=== PATIENT | female | born 1950 | race Caucasian/White ===

== ENCOUNTER 2018-01-07 16:19 | Emergency (ER) | payer MEDICARE ==
[2018-01-07 17:32] LABS: #Basophils 0.1 thou/uL (0.0-0.2); #Eosinphils 0.1 thou/uL (0.0-0.7); #Monocytes 0.9 thou/uL (0.11-0.59); #Neutrophils 11.6 thou/uL (1.40-6.50); %Basophils 0.4 % (0.0-1.0); %Eosinophils 0.9 % (0.0-10.0); %Lymphocytes 13.7 % (21.0-51.0); %Monocytes 5.9 % (0.0-10.0); %Neutrophils 79.1 % (42.0-75.0); Hemoglobin 14.7 g/dL (12.0-16.0); Mean Corpuscular HGB CONC 34.2 g/dL (32.0-36.0); Mean Corpuscular Hemoglobin 31.2 pg (27.0-31.0); Mean Corpuscular Volume 91.1 fL (78.0-98.0); Mean Platelet Volume 7.5 fL (7.4-10.4); Platelet Count 317 thou/uL (130-400); RBC Distribution Width 12.5 % (11.5-14.5); Red Blood Cell (RBC) Count 4.71 mill/uL (4.20-5.40); White Blood Cell (WBC) Count 14.6 thou/uL (4.8-10.8)
[2018-01-07 17:57] LABS: ALT (SGPT) 26 U/L (8-55); AST (SGOT) 22 U/L (5-34); Albumin 4.6 g/dL (3.4-4.8); Alkaline Phosphatase 102 U/L (40-150); Anion Gap 15 mmol/L (10-20); BUN (Urea Nitrogen) 17 mg/dL (9.8-20.1); Bilirubin, Total 0.6 mg/dL (0.2-1.2); Calc. Creatinine Clearance 0 mL/min (70-130); Carbon Dioxide 25 mmol/L (23-31); Chloride 107 mmol/L (98-107); Estimated GFR-MDRD 48; Glucose 110 mg/dL (80-115); Lipase 35 U/L (8-78); Potassium 3.6 mmol/L (3.5-5.1); Protein, Total 7.6 g/dL (6.0-8.3); Sodium 143 mmol/L (136-145)
[2018-01-07 18:07] LABS: Clarity Turbid (Clear)
[2018-01-07 18:08] LABS: Glucose, Urine (Dipstick) Negative (Negative); Leukocyte Negative (Negative); Nitrite Positive (Negative); Protein, Urine (Dipstick) Trace mg/dL (Neg-Trace); Urobilinogen 0.2 mg/dL (0.2-1.0)
[2018-01-07 18:09] LABS: Bilirubin Small (Negative); Blood, Urine Large (Negative); Other Microscopic Description Less than 2 mL rec'd
[2018-01-07] MEDS ORDERED: Ketorolac Tromethamine 30 MG/ML VIAL ONE (18:22)
[2018-01-07] MEDS ORDERED: Ondansetron HCl/PF 4 MG/2 ML Vial ONE (18:22)
[2018-01-07] MEDS ORDERED: cefTRIAXone\\ROCEPHIN 2 GM VIAL ONE (18:52)
--- NOTE | 2018-01-07 20:04 | CT ---
CT ABDOMEN AND PELVIS WITHOUT IV CONTRAST: 01/07/18 HISTORY: Right flank pain, blood in the urine. FINDINGS: Absence of oral and IV contrast reduces the sensitivity of exam, particularly for evaluation of solid organs and bowel. The lung bases are unremarkable. No free air or free fluid is seen in the abdomen or pelvis. No calci fied gallstones are seen. No calculi noted in the kidneys, ureters, or the urinary bladder. No hydroureteronephrosis is seen on either side. There is a prominent right extrarenal pelvis. There is mild right perinephric inflammat ory change. There are vascular calcifications without evidence of aneurysmal dilatation of the abdominal aorta. A retroaortic left renal vein is present. A normal appearing appendix is seen. There is increased dens ity in the mesenteric fat with a few prominent mesenteric lymph nodes. Calcified granulomas in the sp carly. IMPRESSION: 1. No CT evidence of renal calculi obstruction. 2. Possibility of UTI/recent passage of right sided calculus cannot be excluded. 3. 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 POS: [facility]
== END 2018-01-07 20:27 | disposition home or self-care (01) ==
LOC: ERS 16:19
DX: N39.0 Urinary tract infection, site not specified (principal); I10 Essential (primary) hypertension; E78.00 Pure hypercholesterolemia, unspecified; F31.9 Bipolar disorder, unspecified; Z79.899 Other long term (current) drug therapy
CPT/HCPCS: 36415; 74176; 80053; 81003; 81015; 83690; 85025; 87086; 96365; 96375; J0696; J1885; J2270; J2405

== ENCOUNTER 2018-02-17 08:25 | Outpatient (CLI) | payer MEDICARE ==
--- NOTE | 2018-02-17 09:44 | CT ---
CT CHEST WITHOUT IV CONTRAST PULMONARY LUNG SCAN: History: Nicotine dependence. D12.2, screening for lung cancer. Z00.0 wellness exam. Current smoker, 30 + pack years. Comparison: None. FINDINGS: Lung screening specific (Lung RAD Category S): In the posterior segment right lower lobe in the poste rior segment right lower lobe is a 0.9 x 0.8 x 0.7 cm ground glass nodule. Potentially significant (Lung RAD Category S): Negative. Pulmonary incidentals: There are scattered calcified granulomas. Some scarring within the right middl e lobe and lingula. Other incidentals: Moderate degenerative disc space disease throughout the thoracic spine. No thoraci c spine compression fracture. Sternum and manubrium are intact. Visualized portion of the thyroid is unremarkable. No mediastinal adenopathy. A few scattered calcified mediastinal lymph nodes. Upper abd omen is unremarkable. IMPRESSION: 1. Lung rads category 2 - benign appearance or behavior. Recommend continued annual screening with lo se dose CT in 12 months. 8 mm ground glass nodule right lung base. 2. Potentially significant incidentals (Lung RADS category S): None. No potentially significant incid ental findings requiring urgent additional evaluation. POS: [facility]
== END 2018-02-17 08:26 | disposition home or self-care (01) ==
LOC: CT 08:25
PROVIDERS: ATTEND Family Medicine
DX: F17.210 Nicotine dependence, cigarettes, uncomplicated (principal); R91.1 Solitary pulmonary nodule
CPT/HCPCS: G0297

== ENCOUNTER 2018-02-17 10:03 | Outpatient (CLI) | payer MEDICARE | END 2018-02-17 10:04 | disposition home or self-care (01) | LOC: BICMAMMO 10:03 | PROVIDERS: ATTEND Family Medicine | DX: Z12.31 Encounter for screening mammogram for malignant neoplasm of breast (principal); Z80.3 Family history of malignant neoplasm of breast | CPT/HCPCS: 77063; 77067 ==

== ENCOUNTER 2018-05-28 03:01 | Emergency (ER) | payer MEDICARE ==
[2018-05-28] MEDS ORDERED: Ondansetron PF 4 MG/2 ML Vial ONE (03:16)
[2018-05-28] MEDS ORDERED: Morphine 4 MG/ML VIAL ONE (03:16)
[2018-05-28 03:40] LABS: #Basophils 0.1 thou/uL (0.0-0.2); #Eosinphils 0.2 thou/uL (0.0-0.7); #Lymphocytes 2.4 thou/uL (1.20-3.40); #Monocytes 0.5 thou/uL (0.11-0.59); #Neutrophils 7.7 thou/uL (1.40-6.50); %Basophils 0.5 % (0.0-1.0); %Eosinophils 1.7 % (0.0-10.0); %Lymphocytes 22.4 % (21.0-51.0); %Monocytes 4.2 % (0.0-10.0); %Neutrophils 71.2 % (42.0-75.0); Mean Corpuscular HGB CONC 33.7 g/dL (32.0-36.0); Mean Corpuscular Hemoglobin 30.7 pg (27.0-31.0); Mean Corpuscular Volume 90.9 fL (78.0-98.0); Mean Platelet Volume 8.2 fL (7.4-10.4); Platelet Count 279 thou/uL (130-400); RBC Distribution Width 12.3 % (11.5-14.5); Red Blood Cell (RBC) Count 4.56 mill/uL (4.20-5.40); White Blood Cell (WBC) Count 10.8 thou/uL (4.8-10.8)
[2018-05-28 03:53] LABS: ALT (SGPT) 22 U/L (8-55); AST (SGOT) 20 U/L (5-34); Albumin 4.2 g/dL (3.4-4.8); Alkaline Phosphatase 99 U/L (40-150); Anion Gap 15 mmol/L (10-20); BUN (Urea Nitrogen) 18 mg/dL (9.8-20.1); Bilirubin, Total 0.3 mg/dL (0.2-1.2); Calc. Creatinine Clearance 0 mL/min (70-130); Calcium 9.5 mg/dL (7.8-10.44); Carbon Dioxide 24 mmol/L (23-31); Chloride 107 mmol/L (98-107); Estimated GFR-MDRD 54; Glucose 153 mg/dL (80-115); Lipase 36 U/L (8-78); Potassium 3.7 mmol/L (3.5-5.1); Protein, Total 7.2 g/dL (6.0-8.3); Sodium 142 mmol/L (136-145)
[2018-05-28 03:59] LABS: Bilirubin Small (Negative); Blood, Urine Large (Negative); Clarity TURBID (Clear); Glucose, Urine (Dipstick) Negative (Negative); Leukocyte Trace (Negative); Nitrite Negative (Negative); Protein, Urine (Dipstick) 30 mg/dL (Neg-Trace); Specific Gravity, Urine 1.034 (1.002-1.036)
[2018-05-28 04:03] LABS: Bacteria/HPF 1+ HPF (None Seen); Pathc Cast-AUWi Flag 2.21 (0-2.49)
[2018-05-28 04:12] LABS: Crystals/HPF 2+ CA OXALATE HPF (Negative); Hyaline Casts/LPF 0-3 HYALINE CAST LPF (0-3 Hyaline)
[2018-05-28] MEDS ORDERED: HYDROcodone/Acetaminophen 5/325 mg Tablet ONE (05:25)
--- NOTE | 2018-05-28 08:41 | CT ---
PRELIMINARY REPORT/[facility]/EMERGENTY AFTER-HOURS PROCEDURE CT Abdomen and Pelvis Without Contrast EXAM DATE/TIME: 05/28/2018 3:25 AM CLINICAL HISTORY: 67 years old, female; Pain; Abdominal pain; Flank; Left; Patient HX: F 67 presents to ed with left si ded flank pain which wraps around to her abdomen. PT also reports 3 episodes of vomiting. States that she had similar symptoms in the past related to kidney stones. PT states that she has been able to urinate since the onset of pain. TECHNIQUE: Axial computed tomography images of the abdomen and pelvis without contrast. Coronal reformatted images were created and reviewed. COMPARISON: No relevant prior studies available. FINDINGS: Lower thorax: No acute findings. ABDOMEN: Liver: The liver is within normal limits for this noncontrast study. Gallbladder and bile ducts: The gallbladder is normal. There is no evidence of biliary ductal dilatio n. Pancreas: The pancreas appears normal. No ductal dilatation. Spleen: The spleen demonstrates punctate calcifications, consistent with remote granulomatous organis m exposure. Adrenals: The adrenal glands are normal. Kidneys and ureters: The right kidney is normal. The left kidney is normal. There is punctate within the proximal LEFT ureter likely representing a 1 mm obstructing stone with mild LEFT hydronephrosis a nd perinephric stranding. Stomach and bowel: The stomach is normal. The duodenum is unremarkable. The colon is normal. Appendix: No evidence of appendicitis. PELVIS: Bladder: The bladder is normal. The bladder is decompressed but otherwise normal. Reproductive: The uterus is not visualized, and may be atrophic or surgically absent. ABDOMEN and PELVIS: Intraperitoneal space: See Lymph Nodes Finding. Bones/joints: No acute fracture. No dislocation. Soft tissues: Unremarkable. Vasculature: Normal. No abdominal aortic aneurysm. Lymph nodes: There are multiple nonspecific nonpathologic but prominent lymph nodes in the mesentery. There are no mesenteric lymph nodes of pathologic dimensions. There is a diffuse inflammatory strand ing throughout the central mesentery as well. IMPRESSION: 1. There is punctate within the proximal LEFT ureter likely representing a 1 mm obstructing stone wit h mild LEFT hydronephrosis and perinephric stranding. 2. Mesenteric haziness with nonpathologic lymph nodes as above. These findings are nonspecific, and m ost likely represent a viral adenitis. This "irina mesentery" can be an early manifestation of mesent donya lymphoma, however, and a follow up examination is recommended as clinically warranted. Thank you for allowing us to participate in the care of your patient. Dictated and Authenticated by: Suresh Valentin MD 05/28/2018 5:13 AM Central Time ([place] & [place]) FINAL REPORT ABDOMEN CT WITHOUT CONTRAST: PELVIS CT WITHOUT CONTRAST: HISTORY: Left flank pain. COMPARISON: 01/07/2018 FINDINGS: This report is in agreement with the preliminary report by [facility]. Mild left-sided obstructive uropathy secondary to the 1 mm calculus in the proximal left ureter. Mesenteric fat stranding may be due to mesenteric lymphadenopathy. Other etiologies, such as mesenteric lymphoma, cannot be excluded. This finding is similar to the examination from January 2018. Correlate clinically. POS: [facility]
== END 2018-05-28 05:30 | disposition home or self-care (01) ==
LOC: ERS 03:01
DX: N13.2 Hydronephrosis with renal and ureteral calculous obstruction (principal); I10 Essential (primary) hypertension; E78.00 Pure hypercholesterolemia, unspecified; F31.9 Bipolar disorder, unspecified; Z79.899 Other long term (current) drug therapy; Z79.82 Long term (current) use of aspirin
CPT/HCPCS: 74176; 80053; 81003; 81015; 83690; 85025; 94760; 96361; 96374; 96375; J2270; J2405

== ENCOUNTER 2019-05-23 09:52 | Outpatient (CLI) | payer MEDICARE ==
--- NOTE | 2019-05-23 11:33 | CT ---
LOW DOSE CT SCAN CHEST WITHOUT IV CONTRAST FOR LUNG CANCER SCREENING: HISTORY: Smoker for 30+ years. Nicotine dependence. COMPARISON: 02/17/2018 FINDINGS: The approximately 1 cm ground glass nodule in the posterior segment of the right lower lobe is stable . There is a 2 mm solid nodule at the medial aspect of the left upper lobe, not definitely seen on th e previous study. A calcified granuloma in the left upper lobe is again seen. No pleural or pericardi al effusions are noted. There are vascular calcifications without evidence of aneurysmal dilatation o f the thoracic aorta. There are degenerative changes in the spine. A few calcified mediastinal and le ft hilar lymph nodes are again noted. IMPRESSION: Lung-RADS category 2 - benign. RECOMMENDATIONS: Twelve month follow-up LDCT of the chest is recommended. POS: [facility]
== END 2019-05-23 09:53 | disposition home or self-care (01) ==
LOC: CT 09:52
PROVIDERS: ATTEND Family Medicine
DX: Z12.2 Encounter for screening for malignant neoplasm of respiratory organs (principal); F17.210 Nicotine dependence, cigarettes, uncomplicated
CPT/HCPCS: G0297

== ENCOUNTER 2019-06-24 08:40 | Outpatient (CLI) | payer MEDICARE ==
--- NOTE | 2019-06-24 09:32 | MMO ---
Bilateral MAMMO Bilat Screen [facility]. CLINICAL HISTORY: Patient is 68 years old and is seen for screening. The patient has the following family history of breast cancer: paternal grandmother, malignant (generic). The patient has no personal history of cancer. VIEWS: The views performed were: bilateral craniocaudal with tomosynthesis and bilateral mediolateral oblique with tomosynthesis. FILMS COMPARED: The present examination has been compared to prior imaging studies performed at [facility] on 12/21/2012, 04/30/2015, 01/15/2017 and 02/17/2018. This study has been interpreted with the assistance of computer-aided detection. MAMMOGRAM FINDINGS: There are scattered fibroglandular densities. There are stable benign appearing calcifications seen in both breasts. There are no suspicious masses, suspicious calcifications, or new areas of architectural distortion. IMPRESSION: THERE IS NO MAMMOGRAPHIC EVIDENCE OF MALIGNANCY. A ROUTINE FOLLOW-UP MAMMOGRAM IN 1 YEAR IS RECOMMENDED. THE RESULTS OF THIS EXAM WERE SENT TO THE PATIENT. ACR BI-RADS Category 2 - Benign finding MAMMOGRAPHY NOTE: 1. A negative mammogram report should not delay a biopsy if a dominant of clinically suspicious mass is present. 2. Approximately 10% to 15% of breast cancers are not detected by mammography. 3. Adenosis and dense breasts may obscure an underlying neoplasm. Reported by: OCTAVIO AVILA MD Electonically Signed: [id number]
--- NOTE | 2019-06-24 09:39 | BD ---
EXAM: Bone densitometry using DEXA HISTORY: 68 yo female. Screening for postmenopausal osteoporosis, asymptomatic menopausal state FINDINGS: L1--bone mineral density 1.034 g/sq cm; T score 0.4 ; Z score 2.3 L2--bone mineral density 0.998 g/sq cm; T score -0.3 ; Z score 1.9 L3--bone mineral density 1.026 g/sq cm; T score -0.5 ; Z score 1.7 L4--bone mineral density 1.003 g/sq cm; T score -0.5 ; Z score 1.8 Total L1-L4--bone mineral density 1.014 g/sq cm; T score -0.3 ; Z score 1.9 Left femoral neck--bone mineral density0.645; T score -1.8 ; Z score 0.0 Total proximal left femur--bone mineral density 0.824; T score -1.0 ; Z score 0.6 The 10 year fracture risk for a major osteoporotic fracture is 11% and for a hip fracture is 3.2%. IMPRESSION: Osteopenia
== END 2019-06-24 08:41 | disposition home or self-care (01) ==
LOC: BICMAMMO 08:40
PROVIDERS: ATTEND Family Medicine
DX: Z12.31 Encounter for screening mammogram for malignant neoplasm of breast (principal); Z13.820 Encounter for screening for osteoporosis; Z00.00 Encounter for general adult medical examination without abnormal findings; M85.80 Other specified disorders of bone density and structure, unspecified site; Z78.0 Asymptomatic menopausal state; Z80.3 Family history of malignant neoplasm of breast
CPT/HCPCS: 77063; 77067; 77080

== ENCOUNTER 2020-08-27 15:05 | Outpatient (CLI) | payer MEDICARE | END 2020-08-27 15:06 | disposition home or self-care (01) | LOC: BICCT 15:05 | PROVIDERS: ATTEND Family Medicine | DX: Z12.2 Encounter for screening for malignant neoplasm of respiratory organs (principal); F17.210 Nicotine dependence, cigarettes, uncomplicated | CPT/HCPCS: 71271 ==

== ENCOUNTER 2020-10-09 12:06 | Outpatient (CLI) | payer MEDICARE | END 2020-10-09 12:07 | disposition home or self-care (01) | LOC: BICMAMMO 12:06 | PROVIDERS: ATTEND Family Medicine | DX: Z12.31 Encounter for screening mammogram for malignant neoplasm of breast (principal); Z80.3 Family history of malignant neoplasm of breast | CPT/HCPCS: 77063; 77067 ==

== ENCOUNTER 2022-03-20 14:45 | Emergency (ER) | payer MEDICARE ==
[2022-03-20 15:07] LABS: #Lymphocytes 1.9 thou/uL (1.20-3.40); #Monocytes 0.7 thou/uL (0.11-0.59); #Neutrophils 9.3 thou/uL (1.40-6.50); %Basophils 0.1 % (0.0-1.0); %Eosinophils 0.3 % (0.0-10.0); %Lymphocytes 16.2 % (21.0-51.0); %Monocytes 5.4 % (0.0-10.0); Hemoglobin 13.1 g/dL (12.0-16.0); Mean Corpuscular HGB CONC 32.9 g/dL (32.0-36.0); Mean Corpuscular Hemoglobin 31.2 pg (27.0-31.0); Mean Corpuscular Volume 94.9 fL (78.0-98.0); Mean Platelet Volume 9.1 fL (7.4-10.4); Platelet Count 228 thou/uL (130-400); RBC Distribution Width 12.4 % (11.5-14.5); Red Blood Cell (RBC) Count 4.21 mill/uL (4.20-5.40)
[2022-03-20 15:24] LABS: ALT (SGPT) 17 U/L (8-55); AST (SGOT) 19 U/L (5-34); Albumin 4.4 g/dL (3.4-4.8); Alkaline Phosphatase 97 U/L (40-110); Anion Gap 13 mmol/L (10-20); BUN (Urea Nitrogen) 20 mg/dL (9.8-20.1); Bilirubin, Total 0.6 mg/dL (0.2-1.2); Calc. Creatinine Clearance 0 mL/min (70-130); Calcium 10.1 mg/dL (7.8-10.44); Carbon Dioxide 29 mmol/L (23-31); Chloride 103 mmol/L (98-107); Estimated GFR 56; Globulin 2.4 g/dL (2.4-3.5); Glucose 114 mg/dL (83-110); Potassium 3.7 mmol/L (3.5-5.1); Protein, Total 6.8 g/dL (5.8-8.1); Sodium 141 mmol/L (136-145)
[2022-03-20 15:39] LABS: Bilirubin Small (Negative); Blood, Urine Large (Negative); Glucose, Urine (Dipstick) Negative (Negative); Ketone, Urine Negative (Negative); Leukocyte Negative (Negative); Nitrite Positive (Negative); Protein, Urine (Dipstick) 100 mg/dL (Neg-Trace); Urobilinogen 0.2 mg/dL (Less than 2)
[2022-03-20 15:54] LABS: Clarity Cloudy (Clear)
[2022-03-20 15:55] LABS: Bacteria/HPF 1+ HPF (None Seen); RBC/HPF Greater than 50 HPF (0-3); Specific Gravity, Urine 1.022 (1.002-1.036); Squamous Epithelial 0-3 HPF (0-3); WBC/HPF 0-3 HPF (0-3)
== END 2022-03-20 21:10 | disposition home or self-care (01) ==
LOC: ERS 14:45
DX: N13.2 Hydronephrosis with renal and ureteral calculous obstruction (principal); N39.0 Urinary tract infection, site not specified; I10 Essential (primary) hypertension; E78.00 Pure hypercholesterolemia, unspecified; Z79.82 Long term (current) use of aspirin; Z79.899 Other long term (current) drug therapy
CPT/HCPCS: 36415; 74176; 80053; 81003; 81015; 85025; 87086

== ENCOUNTER 2022-04-04 10:28 | Outpatient (CLI) | payer MEDICARE | END 2022-04-04 10:29 | disposition home or self-care (01) | LOC: BICMAMMO 10:28 | PROVIDERS: ATTEND Family Medicine | DX: Z12.31 Encounter for screening mammogram for malignant neoplasm of breast (principal); Z13.820 Encounter for screening for osteoporosis; M85.852 Other specified disorders of bone density and structure, left thigh; Z78.0 Asymptomatic menopausal state; Z80.3 Family history of malignant neoplasm of breast | CPT/HCPCS: 77063; 77067; 77080 ==

== ENCOUNTER 2023-08-12 11:40 | Outpatient (CLI) | payer MEDICARE | END 2023-08-12 11:41 | disposition home or self-care (01) | LOC: BICRAD 11:40 | PROVIDERS: ATTEND Family Medicine | DX: M47.26 Other spondylosis with radiculopathy, lumbar region (principal); M47.817 Spondylosis without myelopathy or radiculopathy, lumbosacral region | CPT/HCPCS: 72100 ==

== ENCOUNTER 2023-09-02 11:44 | Outpatient (CLI) | payer MEDICARE | END 2023-09-02 11:45 | disposition home or self-care (01) | LOC: BICMAMMO 11:44 | PROVIDERS: ATTEND Family Medicine | DX: Z12.31 Encounter for screening mammogram for malignant neoplasm of breast (principal); Z80.3 Family history of malignant neoplasm of breast | CPT/HCPCS: 77063; 77067 ==

== ENCOUNTER 2024-12-06 10:08 | Outpatient (CLI) | payer MEDICARE | END 2024-12-06 10:09 | disposition home or self-care (01) | LOC: BICMAMMO 10:08 | PROVIDERS: ATTEND Family Medicine | DX: Z12.31 Encounter for screening mammogram for malignant neoplasm of breast (principal); M85.851 Other specified disorders of bone density and structure, right thigh; M85.852 Other specified disorders of bone density and structure, left thigh; Z80.3 Family history of malignant neoplasm of breast | CPT/HCPCS: 77063; 77067; 77080 ==

== ENCOUNTER 2025-04-19 14:08 | Outpatient (CLI) | payer MEDICARE | END 2025-04-19 14:09 | disposition home or self-care (01) | LOC: BICCT 14:08 | PROVIDERS: ATTEND Urology | DX: N20.0 Calculus of kidney (principal) | CPT/HCPCS: 74176 ==